=== PATIENT | male | born 2000 | race Caucasian/White ===

== ENCOUNTER 2023-12-03 09:28 | Outpatient (AMB) | payer OTHER, SELFPAY ==
[2023-12-03 09:32] VITALS: BP 136/78; PULSE 72; TEMP 36.6; O2SAT 95; BMI 43.3
--- NOTE | 2023-12-03 09:32 | MHC.OFFWIV ---
Intake Vital Signs 12/03/23 09:32 Height 6 ft 2 in Weight 337 lb BMI 43.3 BP 136/78 Blood Pressure Location Rt brachial Position Sitting Pulse 72 Pulse Source Pulse Oximeter Temp 98 F Temp Source Oral Pulse Oximetry (%) 95 Oxygen Delivery Method Room Air Intake Visit Reasons: [employer]/throat pain/ losing voing (lobby masked) Intake Note: Pt is here c/o sore throat for about five days. Pt states he has been losing his voice. Patient Tobacco Use Status: Never used Tobacco Allergies No Known Allergies Allergy (Verified 12/03/23 09:33) Medication List - Last Reconciled 12/03/23 by FRANDY Herron amoxicillin 875 mg PO BID 7 days Do you need a note to return to daycare/school/sports/work: Yes HPI HPI Comments History of Present Illness Details 23-year-old male presents complaining of sore throat congestion myalgias for 5 days. He has not been tested for COVID PFSH Social History Patient Tobacco Use Status: Never used Tobacco Review of Systems Const Reports body aches, Reports chills, Reports fatigue and Reports fever(s) ENT Reports nasal congestion, Reports nasal discharge and Reports sore throat Resp Reports chest congestion and Reports cough Musc Reports myalgias Endo Reports fatigue Physical Exam Vital Signs: Last Vital Signs Temp 98 F 12/03/23 09:32 Pulse 72 12/03/23 09:32 BP 136/78 12/03/23 09:32 Pulse Ox 95 12/03/23 09:32 Oxygen Delivery Method Room Air 12/03/23 09:32 BMI result Body Mass Index 43.3 Const General: acute distress mild HEENT Head: Yes normal to inspection, Yes normocephalic and Yes atraumatic Ears: hearing grossly normal bilaterally, external ears normal, TM's normal bilaterally, TM normal on the right, TM normal on the left and EAC's normal General nose exam: Normal external nose present and No nasal discharge present Face and sinus: Yes normal facial exam and Yes sinuses nontender Throat: Yes posterior oropharynx abnormal (exudative ) and Yes postnasal drainage (mild) Eyes General: appearance normal, both eyes and all related structures Chest Chest palpation & inspection: normal inspection of the chest Resp Effort & Inspection: normal respiratory effort Auscultation: clear to auscultation bilaterally Cardio Rate: regular rate Rhythm: regular rhythm Heart sounds: S1 normal heart sound present and S2 normal heart sound present Results AMB Rapid Strep AMB Rapid Strep Negative Last Edit by Shefali Monge CMA on 12/03/23 09:44 Results Reviewed Results Reviewed: Laboratory Last Values Strep Scn [facility] Negative 12/03/23 09:43 Assessment & Plan Assessment & Plan (1) Exudative pharyngitis: Code(s): J02.9 - Acute pharyngitis, unspecified Plan: see plan Plan The patient take amoxicillin for the next 10 days and take the next 2 days off work. We will call with the results of his viral culture Orders: Orders AMB Rapid Strep Screen Today Z13.9 - Encounter for screening, unspecified Mitchell Olsen MD SARS-CoV2/FLU/RSV Today R09.89 - Other specified symptoms and signs involving the circulatory and respiratory systems FRANDY Herron Medications: New amoxicillin 875 mg PO BID 10 days 20 tabs 0RF FRANDY Herron Patient Instructions: Rest push fluids and avoid contact with others as possible Coding Level of Care Code Est Pt Level 3 (31202) Diagnoses Exudative pharyngitis J02.9
== END 2023-12-03 10:37 | disposition home or self-care (01) ==
PROVIDERS: PCP Pediatrics; Visit Provider Physician Assistant Medical
DX: J02.8 Acute pharyngitis due to other specified organisms (principal)
CPT/HCPCS: 87880; 99203

== ENCOUNTER 2023-12-03 14:27 | Outpatient (REF) | payer OTHER, SELFPAY ==
[2023-12-03 15:09] LABS: Influenza A PCR NEGATIVE (Negative); Influenza B PCR NEGATIVE (Negative); Resp Syncy Virus RNA Qual PCR NEGATIVE (Negative); SARS COV2 PCR INHOUSE NEGATIVE (Negative)
== END 2023-12-03 14:28 | disposition home or self-care (01) ==
LOC: HO.LNP 14:27
PROVIDERS: Visit Provider Physician Assistant Medical
DX: Z11.52 Encounter for screening for COVID-19 (principal); Z20.822 Contact with and (suspected) exposure to COVID-19; R09.89 Other specified symptoms and signs involving the circulatory and respiratory systems
CPT/HCPCS: 0241U